=== PATIENT | female | born 1995 | race Caucasian/White ===

== ENCOUNTER 2019-12-06 11:34 | Emergency (ER) | payer OTHER ==
--- NOTE | 2019-12-06 12:03 | ED Physician Documentation ---
History of Present Illness - Stated complaint Stated Complaint: BLEEDING - Chief complaint Chief Complaint: General - History of Present Illness Timing: Prior to arrival - Additonal information Additional information: 24-year-old female presents to the emergency department for evaluation of vaginal spotting and first trimester . Last menstrual period 10/22/2019. This young lady reports that this a.m. she began having very light vaginal spotting and mild pelvic cramping but no focal pain. This is her first . She denies fevers vomiting diarrhea dysuria urgency or frequency. No pertinent past medical history or abdominal surgeries. She is not taking any prescribed medications. Denies alcohol or tobacco use Review of Systems Constitutional: reports: Reviewed and negative Eyes: reports: Reviewed and negative Nose: reports: Reviewed and negative Throat: reports: Reviewed and negative Cardiac: reports: Reviewed and negative Respiratory: reports: Reviewed and negative GI: reports: Abdominal Pain (lowr pelvic cramping). denies: Nausea, Vomiting, Diarrhea : reports: LMP (10/22/2019), Vaginal bleeding, Now EGA. denies: Dysuria, Frequency, Hesitancy Skin: reports: Reviewed and negative Musculoskeletal: reports: Reviewed and negative Neurologic: reports: Reviewed and negative PD PAST MEDICAL HISTORY - Present Medications Home Medications: Ambulatory Orders Medication Instructions Recorded Confirmed No Known Home Medications 12/06/19 12/06/19 - Allergies Allergies/Adverse Reactions: Allergies Allergy/AdvReac Type Severity Reaction Status Date / Time No Known Drug Allergies Allergy Verified 12/06/19 11:38 PD ED PE NORMAL - General General: Alert and oriented X 3, No acute distress, Well developed/nourished - HEENT HEENT: Atraumatic, EOMI - Neck Neck: Supple, no meningeal sign, No adenopathy - Cardiac Cardiac: RRR, No murmur, No gallop - Respiratory Respiratory: No respiratory distress, Clear bilaterally - Abdomen Abdomen: Normal bowel sounds, Soft, Non tender, Non distended - Female Female : Deferred - Back Back: No CVA TTP - Derm Derm: Normal color, Warm and dry, No rash - Extremities Extremities: No deformity, No tenderness to palpate, Normal ROM s pain - Neuro Neuro: Alert and oriented X 3, 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 Eye Opening: Spontaneous Motor: Obeys Commands Verbal: Oriented GCS Score: 15 - Psych Psych: Normal mood Results - Vitals Vitals: Vital Signs - 24 hr 12/06/19 11:35 Temperature 37.4 C Heart Rate 111 H Respiratory 20 Rate Blood Pressure 121/79 O2 Saturation 100 Oxygen O2 Source Room air - Labs Labs: Laboratory Tests 12/06/19 12/06/19 12/06/19 12:00 12:15 12:15 WBC 8.4 RBC 4.73 Hgb 13.5 Hct 42.1 MCV 89.0 MCH 28.5 MCHC 32.1 RDW 12.4 Plt Count 221 MPV 11.8 H Neut # (Auto) 5.2 Lymph # (Auto) 2.2 [place] # (Auto) 0.8 Eos # (Auto) 0.1 Baso # (Auto) 0.0 Absolute Nucleated RBC 0.00 Nucleated RBC % 0.0 Sodium Potassium Chloride Carbon Dioxide Anion Gap BUN Creatinine Estimated GFR (MDRD) Glucose Calcium Total Bilirubin AST ALT Alkaline Phosphatase Total Protein Albumin Globulin Albumin/Globulin Ratio Lipase HCG, Quant Urine Color YELLOW Urine Clarity CLEAR Urine pH 6.0 Ur Specific [place] 1.010 Urine Protein NEGATIVE Urine Glucose (UA) NEGATIVE Urine Ketones NEGATIVE Urine Occult Blood MODERATE H Urine Nitrite NEGATIVE Urine Bilirubin NEGATIVE Urine Urobilinogen 0.2 (NORMAL) Ur Leukocyte Esterase TRACE H Urine RBC 0-5 Urine WBC 0-3 Ur Squamous Epith Cells FEW Squamous Urine Bacteria Few Ur Microscopic Review INDICATED Urine Culture Comments INDICATED Blood Type O POSITIVE 12/06/19 12/06/19 12:15 12:15 WBC RBC Hgb Hct MCV MCH MCHC RDW Plt Count MPV Neut # (Auto) Lymph # (Auto) [place] # (Auto) Eos # (Auto) Baso # (Auto) Absolute Nucleated RBC Nucleated RBC % Sodium 137 Potassium 3.3 L Chloride 103 Carbon Dioxide 24 Anion Gap 10.0 BUN 10 Creatinine 0.6 Estimated GFR (MDRD) 125 Glucose 86 Calcium 9.3 Total Bilirubin 1.2 H AST 17 ALT 16 Alkaline Phosphatase 36 L Total Protein 7.1 Albumin 4.4 Globulin 2.7 Albumin/Globulin Ratio 1.6 Lipase 30 HCG, Quant 04429.00 Urine Color Urine Clarity Urine pH Ur Specific [place] Urine Protein Urine Glucose (UA) Urine Ketones Urine Occult Blood Urine Nitrite Urine Bilirubin Urine Urobilinogen Ur Leukocyte Esterase Urine RBC Urine WBC Ur Squamous Epith Cells Urine Bacteria Ur Microscopic Review Urine Culture Comments Blood Type - Rads (name of study) Pelvic US Radiology: Final report received (Likely early intrauterine with early gestational sac and yolk sac but no pole at this time. Recommend follow- up obstetric ultrasound in 1 week) PD MEDICAL DECISION MAKING - ED course Complexity details: reviewed results, re-evaluated patient, considered differential, d/w patient, d/w family ED course: 24 year old female presents to the ED for evaluation of first trimester vaginal spotting/bleeding - Pt is O positive - UA showed a few bacteria and is LE+; rare squamous cells. Will start macrobid - Ultrasound Showed an early IUP with gestational sac and yolk sac but no pole yet seen. Patient has a very healthy hCG level at > 17,000. [place] here on Tuesday to have her hCG level redrawn. Emergent return precautions discussed for severe vaginal bleeding. Departure - Departure Disposition: 01 Home, Self Care Clinical Impression: Threatened in first trimester Condition: Stable Record reviewed to determine appropriate education?: Yes Instructions: ED Miscarriage Poss Comments: Radha the ultrasound today shows that you have a gestational and a yolk sac in your uterus but it is too soon for us to see heart rate and activity. Your hormone level today was more than 17,000. Please return here on Tuesday to have your hormone level rechecked. A hormone level that doubles approximately every 48 hours is a good sign that the is going to continue normally. A dropping hormone level is a sign of inevitable miscarriage. If you develop suddenly severe lower abdominal pain, feel faint or lightheaded, or have severe vaginal bleeding as we discussed then please return sooner to the emergency department
[2019-12-06 12:31] LABS: BASOPHILS % (AUTO) 0.2 %; EOSINOPHILS # (AUTO) 0.1 10^3/uL (0.0-0.7); EOSINOPHILS % (AUTO) 0.6 %; HGB - HEMOGLOBIN 13.5 g/dL (12.0-16.0); LYMPHOCYTES # (AUTO) 2.2 10^3/uL (1.5-3.5); LYMPHOCYTES % (AUTO) 26.7 %; MEAN CORPUSCULAR HEMOGLOBIN 28.5 pg (27.0-31.0); MEAN CORPUSCULAR HGB CONC 32.1 g/dL (32.0-36.0); MEAN PLATELET VOLUME 11.8 fL (7.9-10.8); MONOCYTES # (AUTO) 0.8 10^3/uL (0.0-1.0); MONOCYTES % (AUTO) 9.7 %; NEUTROPHILS # (AUTO) 5.2 10^3/uL (1.5-6.6); PLT - PLATELET COUNT 221 10^3/uL (130-450); RED BLOOD COUNT 4.73 10^6/uL (4.20-5.40); RED CELL DISTRIBUTION WIDTH 12.4 % (12.0-15.0); WHITE BLOOD COUNT 8.4 x10^3/uL (4.8-10.8)
[2019-12-06 12:33] LABS: BILIRUBIN,URINE NEGATIVE (NEGATIVE); GLUCOSE, URINE (UA) NEGATIVE (NEGATIVE); KETONES,URINE (UA) NEGATIVE (NEGATIVE); LEUKOCYTE ESTERASE, URINE TRACE (NEGATIVE); NITRITE,URINE NEGATIVE (NEGATIVE); OCCULT BLOOD,URINE MODERATE (NEGATIVE); PROTEIN,URINE NEGATIVE (NEGATIVE); UROBILINOGEN,URINE 0.2 (NORMAL) E.U./dL (NORMAL)
[2019-12-06 12:42] LABS: ALBUMIN 4.4 g/dL (3.2-5.5); ALBUMIN/GLOBULIN RATIO 1.6 (1.0-2.2); BILIRUBIN,TOTAL 1.2 mg/dL (0.2-1.0); CALCIUM 9.3 mg/dL (8.5-10.3); CREATININE 0.6 mg/dL (0.4-1.0); TOTAL PROTEIN 7.1 g/dL (6.7-8.2)
[2019-12-06 12:49] LABS: CLARITY,URINE CLEAR (CLEAR)
[2019-12-06 12:55] LABS: BACTERIA,URINE Few /HPF (None Seen); RBC,URINE 0-5 /HPF (0-5); SQUAMOUS EPITHELIAL CELL,UR FEW Squamous (<= Few)
--- NOTE | 2019-12-06 14:32 | Ultrasound Report ---
PROCEDURE: OB First Trimester w/TV INDICATIONS: vaginal spotting and bleeding OUTSIDE/PRIOR DATING DATA: Last menstrual period (LMP): 10/22/2019. LMP-based estimated date of delivery (JONH): 07/28/2020. First dating scan (date and location): Not applicable. Estimated date of delivery (JONH) from first dating scan: Not applicable. TECHNIQUE: Real-time scanning was performed of the fetus and maternal pelvic organs, with image documentation. Endovaginal scanning was also performed to better visualize the fetus and maternal ovaries. COMPARISON: None FINDINGS: Embryo: Probable intrauterine gestational sac identified. Yolk sac is identified within the probable gestational sac. No pole or heart motion identified in the current study. Mean gestation al sac diameter is 1.05 cm. Small 0.9 x 0.3 x 0.8 periimplantation bleed is noted. Measurement variability in dating: +/- 4 weeks by LMP, +/- 7 days by mean sac diameter (use before 6 weeks gestation if crown-rump length not able to be measured), +/- 5 days by crown-rump length (6-12 weeks gestation). Maternal organs: Ovaries normal limits. Limited images through the kidneys demonstrate no hydroneph rosis. IMPRESSION: Likely early intrauterine with likely gestational sac and yolk sac but no pole at thi s time. Recommend follow-up obstetric ultrasound in one week. Reviewed by: Emi Cleaning MD, PhD on 12/06/2019 2:31 PM PDT Approved by: Emi Cleaning MD, PhD on 12/06/2019 2:31 PM PDT Station ID: [id number]
[2019-12-06 15:11] VITALS: BP 108/74
== END 2019-12-06 15:10 | disposition home or self-care (01) ==
LOC: ED 11:34
DX: O20.0 Threatened abortion (principal); Z3A.01 Less than 8 weeks gestation of pregnancy
CPT/HCPCS: 36415; 76801; 76817; 80053; 81001; 81003; 83690; 84702; 85025; 86900; 86901; 87086; 99284

== ENCOUNTER 2019-12-08 12:12 | Emergency (ER) | payer OTHER ==
[2019-12-08 13:10] LABS: BASOPHILS % (AUTO) 0.2 %; EOSINOPHILS % (AUTO) 0.5 %; HGB - HEMOGLOBIN 13.8 g/dL (12.0-16.0); LYMPHOCYTES % (AUTO) 24.8 %; MEAN CORPUSCULAR HEMOGLOBIN 28.8 pg (27.0-31.0); MEAN CORPUSCULAR HGB CONC 32.5 g/dL (32.0-36.0); MEAN CORPUSCULAR VOLUME 88.5 fL (81.0-99.0); MONOCYTES # (AUTO) 0.8 10^3/uL (0.0-1.0); MONOCYTES % (AUTO) 9.5 %; NEUTROPHILS # (AUTO) 5.3 10^3/uL (1.5-6.6); NEUTROPHILS % (AUTO) 64.4 %; PLT - PLATELET COUNT 214 10^3/uL (130-450); RED BLOOD COUNT 4.79 10^6/uL (4.20-5.40); RED CELL DISTRIBUTION WIDTH 12.5 % (12.0-15.0); WHITE BLOOD COUNT 8.2 x10^3/uL (4.8-10.8)
--- NOTE | 2019-12-08 14:02 | ED Physician Documentation ---
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 At that time her quantitative hCG was 17,630 and she had an ultrasound done which demonstrated gestational sac but without evident pole. She was asked to return to the emergency department for repeat hCG in 2 days time and she states that, since she has been to the emergency department, bleeding and cramping has stopped. She feels otherwise well and is not currently ill. Review of Systems Constitutional: denies: Fever Eyes: denies: Decreased vision Ears: denies: Ear pain Nose: denies: Congestion Throat: denies: Sore throat Respiratory: denies: Dyspnea, Cough GI: denies: Abdominal Pain, Nausea, Vomiting : denies: Dysuria PD PAST MEDICAL HISTORY - Past Surgical History HEENT: Tonsil/Adenoidectomy - Present Medications Home Medications: Ambulatory Orders Medication Instructions Recorded Confirmed No Known Home Medications 12/06/19 12/06/19 - Allergies Allergies/Adverse Reactions: Allergies Allergy/AdvReac Type Severity Reaction Status Date / Time No Known Drug Allergies Allergy Verified 12/08/19 12:35 - Social History Does the pt smoke?: No Smoking Status: Never smoker Does the pt have substance abuse?: No - Immunizations Immunizations are current?: Yes PD ED PE NORMAL - Vitals Vital signs reviewed: Yes (normal ) - General General: Alert and oriented X 3, No acute distress, Well developed/nourished - HEENT HEENT: Atraumatic, PERRL - Neck Neck: Supple, no meningeal sign - Cardiac Cardiac: RRR, No murmur - Respiratory Respiratory: No respiratory distress, Clear bilaterally - Abdomen Abdomen: Soft, Non tender - Back Back: No CVA TTP, No spinal TTP - Derm Derm: Normal color, Warm and dry, No rash - Extremities Extremities: No deformity, No edema - Neuro Neuro: Alert and oriented X 3, 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, No motor deficit, No sensory deficit, Normal speech Eye Opening: Spontaneous Motor: Obeys Commands Verbal: Oriented GCS Score: 15 - Psych Psych: Normal mood, Normal affect Results - Vitals Vitals: Vital Signs - 24 hr 12/08/19 12/08/19 12:29 12:41 Temperature 36.4 C L Heart Rate 77 79 Respiratory 16 16 Rate Blood Pressure 106/60 110/73 O2 Saturation 99 98 Oxygen O2 Source Room air - Labs Labs: Laboratory Tests 12/08/19 12/08/19 13:02 13:02 WBC 8.2 RBC 4.79 Hgb 13.8 Hct 42.4 MCV 88.5 MCH 28.8 MCHC 32.5 RDW 12.5 Plt Count 214 MPV 12.0 H Neut # (Auto) 5.3 Lymph # (Auto) 2.0 Lane # (Auto) 0.8 Eos # (Auto) 0.0 Baso # (Auto) 0.0 Absolute Nucleated RBC 0.00 Nucleated RBC % 0.0 HCG, Quant 06629.00 Procedures - Bedside sono Bedside sono by EMP: With use of bedside ultrasound the pelvis is imaged there is a gestational sac that measures 6 weeks 3 days. I am not able to visualize a pole. PD MEDICAL DECISION MAKING - ED course Complexity details: reviewed old records, reviewed results, re-evaluated patient, considered differential, d/w patient, d/w family ED course: 24-year-old female with bleeding and cramping that has now resolved has had ultrasound without evidence of a pole does appear to be an intrauterine gestational sac and the quantitative hCG has risen appropriately for the stage of .A bedside ultrasound is attempted and I am not able to see a pole. I am able to see a gestational sac and measure it and this measures about 6 weeks 3 days.I have discussed with the patient the reassurance of the rising quantitative hCG and the fact that we still are not able to see a pole. I suspect. is progressing and I have indicated the patient the alternative which would be a blighted ovum. I have asked her to follow up with her OB this coming week for a formal ultrasound. Departure - Departure Disposition: 01 Home, Self Care Clinical Impression: First trimester Condition: Stable Instructions: Bleeding Early Preg Follow-Up: OREN Hurt [Provider Group] Comments: Today your quantitative hCG is 29,087.00 and this number is appropriate amount of increase in the past 2 days for a normal . You will need another formal ultrasound in about one week to confirm the presents of the fetus.
[2019-12-08 14:20] VITALS: BP 106/72
== END 2019-12-08 14:24 | disposition home or self-care (01) ==
LOC: ED 12:12
DX: O20.9 Hemorrhage in early pregnancy, unspecified (principal); Z3A.01 Less than 8 weeks gestation of pregnancy
CPT/HCPCS: 36415; 84702; 85025; 99282; 99283

== ENCOUNTER 2020-05-10 10:50 | Outpatient (CLI) | payer OTHER ==
[2020-05-10 11:00] VITALS: BP 111/64
[2020-05-10 11:56] LABS: RUPTURE OF MEMBRANES PLUS NEGATIVE (NEGATIVE)
--- NOTE | 2020-05-10 13:00 | PROVIDER PROGRESS NOTE ---
- HPI Current : Current EDU 08/04/20 Gestation 27 Weeks and 5 Days 1 Para 0 Vital Signs Temperature 98.2 F 05/10/20 10:57 Heart Rate 117 H 05/10/20 10:57 Respiratory Rate 22 05/10/20 10:57 Blood Pressure 111/64 05/10/20 10:57 O2 Saturation 100 05/10/20 10:57 Temperature 98.2 F 05/10/20 10:57 Heart Rate 117 H 05/10/20 10:57 Respiratory Rate 22 05/10/20 10:57 Blood Pressure 111/64 05/10/20 10:57 O2 Saturation 100 05/10/20 10:57 - Procedures NST Procedure: NST Procedure Start Date 05/10/20 Start Time 11:00 Stop Time 12:05 Vibroacoustic Stimulation Used No Patient States Movement Yes - Plan Plan: Patient seen and evaluated by MD, 20min time. S: leaking of fluid for 2d, started yesterday, wet through underwear once. That happened again today. No color to the fluid. No VB, no UC. Good FM. No vaginal itching or odor. O: AVSS Alert, smiling, NAD Abd soft, nt/nd EFG normal Vag pink/normal/no lesions with physiologic discharge Negative pooling, valsalva, ferning, and nitrizine Baseline: BPM 150 Variability: Moderate Accelerations: Present Decelerations: Absent Trends in FHR over time: no changes [place] contractions in 10 minutes: 0 Impression: reactive Category 1 NST Labs: neg wet mount, neg ROM test A/P: 24yo P0 at 27w with leukorrhea of , no evidence of ROM. labor precautions given. Routine follow up at next scheduled visit.
[2020-05-10 22:16] LABS: CHLAMYDIA TRACHOMATIS DNA NEGATIVE (NEGATIVE); NEISSERIA GONORRHOEAE DNA NEGATIVE (NEGATIVE); TRICHOMONAS VAGINALIS DNA NEGATIVE (NEGATIVE)
== END 2020-05-10 13:00 | disposition home or self-care (01) ==
LOC: WFO 10:50 → FBP 10:51 → WFO 13:00
PROVIDERS: ATTEND Obstetrics & Gynecology
DX: O99.891 Other specified diseases and conditions complicating pregnancy (principal); N89.8 Other specified noninflammatory disorders of vagina; Z3A.27 27 weeks gestation of pregnancy
CPT/HCPCS: 59025; 84112; 87210; 87491; 87591; 87661; 99213

== ENCOUNTER 2020-06-01 08:31 | Outpatient (CLI) | payer OTHER ==
--- NOTE | 2020-06-01 12:45 | Ultrasound Report ---
PROCEDURE: OB F/U or Repeat INDICATIONS: SUPERVISION OF NORMAL OUTSIDE/PRIOR DATING DATA: Last menstrual period (LMP): Given as 10/29/2019. LMP-based estimated date of delivery (JONH): Given as 08/04/2020, physician stated. First dating scan (date and location): Not applicable Estimated date of delivery (JONH) from first dating scan: Not applicable. TECHNIQUE: Real-time scanning was performed of the fetus, with image documentation and biometric measurements. Endovaginal scanning: Not done COMPARISON: 12/06/2019 FINDINGS: General: A single live intrauterine gestation is present. Presentation: Cephalic Placenta: Placental position is anterior, without previa. Amniotic fluid index: 12.3 cm cm, 27th percentile for gestational age. heart rate: 144 beats per minute. Maternal cervical canal: 3.6 cm cm long; normal length is 2.5 cm or more. biometrics: Biparietal diameter: 8 cm equals 31 weeks 1 day Head circumference: 29.6 cm equals 32 weeks 5 days Abdominal circumference: 28.1 cm equals 32 weeks 1 day Femur length: 5.7 cm equals 29 weeks 1 day Estimated gestational age from initial scan: 30 weeks 6 days Composite gestational age from present scan: 31 weeks 5 days Estimated weight and percentile: 1778 g, 68th percentile Measurement variability in biometric dating: +/- 10 days from 12-20 weeks gestation, +/- 2 weeks from 20-30 weeks gestation, +/- 3 weeks at 30 weeks gestation or more. Other: Not applicable. IMPRESSION: Single live intrauterine . Normal interval growth compared to the prior ultrasound examination. Estimated weight is at the 60th percentile for gestational age. Reviewed by: Pipo Bashir MD on 06/01/2020 11:43 AM KATY Approved by: Pipo Bashir MD on 06/01/2020 11:43 AM KATY Station ID: [id number]
== END 2020-06-01 08:32 | disposition home or self-care (01) ==
LOC: DI 08:31
PROVIDERS: ATTEND Obstetrics & Gynecology
DX: Z34.93 Encounter for supervision of normal pregnancy, unspecified, third trimester (principal)

== ENCOUNTER 2020-07-02 16:10 | Outpatient (CLI) | payer OTHER ==
[2020-07-02 16:25] VITALS: BP 108/67
--- NOTE | 2020-07-04 16:10 | PROVIDER PROGRESS NOTE ---
- HPI Chief Complaint: Decreased movement Current : Current EDU 08/04/20 Gestation 35 Weeks and 2 Days 1 Para 0 Vital Signs Temperature 98.8 F 07/02/20 16:24 Heart Rate 115 H 07/02/20 16:24 Respiratory Rate 16 07/02/20 16:24 Blood Pressure 108/67 07/02/20 16:24 O2 Saturation 99 07/02/20 16:24 Temperature 98.8 F 07/02/20 16:24 Heart Rate 115 H 07/02/20 16:24 Respiratory Rate 16 07/02/20 16:24 Blood Pressure 108/67 07/02/20 16:24 O2 Saturation 99 07/02/20 16:24 - Exam Patient is a 24 yo at 35+2 wga here with decreased FM. Recently underwent 2nd COVID vaccine. She did ntohave signficant symptoms but movement has been less robust since the vaccination. Has done some kick counts and felt the count was insufficient. has been uncomplicated to date. No CTX. No LOF or VB Past Medical History: Reviewed: No siginificant past medical history noted Past Surgical History: Reviewed and updated today: Eye Surgery Tonsilectomy FH: Genetic kidney disease Father on dialysis Sister affected (Patient is negative for gene mutation per records) ROS: As per HPI, otherwsie remaining systems are negative Past Medical History: Reviewed: No siginificant past medical history noted Past Surgical History: Reviewed and updated today: Eye Surgery Tonsilectomy FH: Genetic kidney disease Father on dialysis Sister affected (Patient is negative for gene mutation per records) PE: VS: see above GEN: NAD CV: mild tachycardia, reg rate RESP: CTAB ABD: gravid, S&NT PSYCH: appropriate affect NEURO: A&O - Procedures OB Procedure Performed: NST Diagnosis/Indication for NST: Decreased movement NST Procedure: NST Procedure Start Date 07/02/20 Start Time 16:20 Stop Time 12:05 Vibroacoustic Stimulation Used No Patient States Movement No: hasn't felt baby for 2 hours EFM 140 mod wagner 15x15 accels no decels TOCO: quiet Service Date of procedure: 07/02/20 Findings: 24 yo at 35+2 wga here with decreased FM Cat I tracing Reviewed kick counts and warning signs with patient Has FU this week in clinic DX: IUP at 35+2 wga Decreased FM
== END 2020-07-02 17:20 | disposition home or self-care (01) ==
LOC: WFO 16:10 → FBP 16:13 → WFO 17:20
PROVIDERS: ATTEND Obstetrics & Gynecology
DX: O36.8130 Decreased fetal movements, third trimester, not applicable or unspecified (principal); Z3A.35 35 weeks gestation of pregnancy; Z84.2 Family history of other diseases of the genitourinary system
CPT/HCPCS: 59025; 99211

== ENCOUNTER 2020-07-08 08:00 | Outpatient (CLI) | payer OTHER | END 2020-07-08 23:59 | disposition home or self-care (01) | LOC: LAB.WC 08:00 | PROVIDERS: ATTEND Obstetrics & Gynecology | DX: Z36.85 Encounter for antenatal screening for Streptococcus B (principal) | CPT/HCPCS: 87797 ==

== ENCOUNTER 2020-07-15 09:53 | Outpatient (CLI) | payer OTHER ==
[2020-07-15 10:29] VITALS: BP 106/74
[2020-07-15 10:53] LABS: BILIRUBIN,URINE NEGATIVE (NEGATIVE); GLUCOSE, URINE (UA) NEGATIVE (NEGATIVE); KETONES,URINE (UA) NEGATIVE (NEGATIVE); LEUKOCYTE ESTERASE, URINE MODERATE (NEGATIVE); NITRITE,URINE NEGATIVE (NEGATIVE); OCCULT BLOOD,URINE NEGATIVE (NEGATIVE); PROTEIN,URINE NEGATIVE (NEGATIVE); UROBILINOGEN,URINE 0.2 (NORMAL) E.U./dL (NORMAL)
[2020-07-15 10:59] LABS: CREATININE,URINE 159.7 mg/dL; PROTEIN/CREATININE RATIO,URINE 0.1 (<=0.2)
[2020-07-15 11:04] LABS: CLARITY,URINE SL. CLOUDY (CLEAR)
[2020-07-15 11:05] LABS: BASOPHILS % (AUTO) 0.2 %; EOSINOPHILS % (AUTO) 0.5 %; HCT - HEMATOCRIT 34.8 % (37.0-47.0); HGB - HEMOGLOBIN 10.7 g/dL (12.0-16.0); LYMPHOCYTES # (AUTO) 1.6 10^3/uL (1.5-3.5); LYMPHOCYTES % (AUTO) 25.3 %; MEAN CORPUSCULAR HEMOGLOBIN 23.6 pg (27.0-31.0); MEAN CORPUSCULAR HGB CONC 30.7 g/dL (32.0-36.0); MEAN CORPUSCULAR VOLUME 76.8 fL (81.0-99.0); MEAN PLATELET VOLUME 12.7 fL (7.9-10.8); MONOCYTES # (AUTO) 0.7 10^3/uL (0.0-1.0); MONOCYTES % (AUTO) 10.6 %; NEUTROPHILS % (AUTO) 62.8 %; PLT - PLATELET COUNT 237 10^3/uL (130-450); RED BLOOD COUNT 4.53 10^6/uL (4.20-5.40); RED CELL DISTRIBUTION WIDTH 15.3 % (12.0-15.0); WHITE BLOOD COUNT 6.4 x10^3/uL (4.8-10.8)
[2020-07-15 11:14] LABS: BILIRUBIN,TOTAL 0.6 mg/dL (0.2-1.0); CALCIUM 8.6 mg/dL (8.5-10.3); CREATININE 0.5 mg/dL (0.4-1.0); POTASSIUM 3.8 mmol/L (3.5-5.0)
[2020-07-15 11:14] LABS: RBC,URINE 0-5 /HPF (0-5); SQUAMOUS EPITHELIAL CELL,UR MANY Squamous (<= Few)
[2020-07-15 11:15] LABS: BACTERIA,URINE Few /HPF (None Seen)
--- NOTE | 2020-07-15 11:42 | PROCEDURE REPORT ---
- HPI Diagnosis/Indication for NST: Other (back pain) Current EDU 08/04/20 Gestation 37 Weeks and 1 Days 1 Para 0 Vital Signs Temperature 97.9 F 07/15/20 10:12 Heart Rate 115 H 07/15/20 10:12 Respiratory Rate 07/15/20 10:12 Blood Pressure 106/74 07/15/20 10:12 O2 Saturation 100 07/15/20 10:12 Temperature 97.9 F 07/15/20 10:29 Heart Rate 115 H 07/15/20 10:29 Respiratory Rate 07/15/20 10:29 Blood Pressure 106/74 07/15/20 10:29 O2 Saturation 100 07/15/20 10:29 - NST Procedure NST Procedure Start Date 07/15/20 Start Time 10:10 Stop Time 10:37 Vibroacoustic Stimulation Used No Patient States Movement Yes - Results and Plan Findings/Impression: Baseline: BPM 135 Variability: Moderate Accelerations: Present Decelerations: Absent Trends in FHR over time: no changes [place] contractions in 10 minutes: 0 Impression: reactive Category 1 NST CC: back pain HPI: was getting baby's room ready yesterday. When woke up noticed significant pain in the left occipital, upper back and back of shoulder area. No cough or hemptysis. O: aVSS, alert and resting well. tender to palpation trapezius muscle. No abd tenderness. Trace LE edema bilat. Normal PIH labs A/P: Trapezius spasm. Comfort measures reviewed.
== END 2020-07-15 11:40 | disposition home or self-care (01) ==
LOC: WFO 09:53 → FBP 09:57 → WFO 11:40
PROVIDERS: ATTEND Obstetrics & Gynecology
DX: O99.891 Other specified diseases and conditions complicating pregnancy (principal); M62.830 Muscle spasm of back; Z3A.37 37 weeks gestation of pregnancy
CPT/HCPCS: 36415; 59025; 80053; 81001; 82570; 84156; 85025; 87086; 99213

== ENCOUNTER 2020-07-17 17:46 | Outpatient (CLI) | payer OTHER ==
[2020-07-17 18:05] VITALS: BP 110/72
[2020-07-17 18:26] LABS: RUPTURE OF MEMBRANES PLUS NEGATIVE (NEGATIVE)
--- NOTE | 2020-07-20 04:43 | PROCEDURE REPORT ---
- HPI Diagnosis/Indication for NST: Other (leukorrhea of ) Current EDU 08/04/20 Gestation 37 Weeks and 3 Days 1 Para 0 Vital Signs Temperature 99.0 F 07/17/20 18:03 Heart Rate 97 07/17/20 18:03 Respiratory Rate 16 07/17/20 18:03 Blood Pressure 110/72 07/17/20 18:03 O2 Saturation 98 07/17/20 18:03 Temperature 99.0 F 07/17/20 18:03 Heart Rate 97 07/17/20 18:03 Respiratory Rate 16 07/17/20 18:03 Blood Pressure 110/72 07/17/20 18:03 O2 Saturation 98 07/17/20 18:03 - NST Procedure NST Procedure Start Date 07/17/20 Start Time 17:52 Stop Time 10:37 Patient States Movement Yes - Results and Plan Findings/Impression: Baseline: BPM 150 Variability: Moderate Accelerations: Present Decelerations: Absent Trends in FHR over time: no changes [place] contractions in 10 minutes: 0 Impression: reactive Category 1 NST Neg ROM test, no abnormal LOF here.
== END 2020-07-17 18:51 | disposition home or self-care (01) ==
LOC: WFO 17:46 → FBP 17:49 → WFO 18:51
PROVIDERS: ATTEND Obstetrics & Gynecology
DX: O99.891 Other specified diseases and conditions complicating pregnancy (principal); N89.8 Other specified noninflammatory disorders of vagina; Z3A.37 37 weeks gestation of pregnancy
CPT/HCPCS: 84112; 99214

== ENCOUNTER 2020-07-24 16:09 | Outpatient (CLI) | payer OTHER ==
[2020-07-24 17:07] VITALS: BP 100/64
[2020-07-24 17:10] LABS: RUPTURE OF MEMBRANES PLUS NEGATIVE (NEGATIVE)
--- NOTE | 2020-08-03 17:47 | PROVIDER PROGRESS NOTE ---
- HPI Chief Complaint: Leakage of vaginal fluid Current : Current EDU 08/04/20 Gestation 38 Weeks and 3 Days 1 Para 0 Vital Signs Temperature 97.4 F L 07/24/20 16:55 Heart Rate 92 07/24/20 16:55 Respiratory Rate 18 07/24/20 16:55 Blood Pressure 100/64 07/24/20 16:55 O2 Saturation 99 07/24/20 16:55 Temperature 97.4 F L 07/24/20 16:55 Heart Rate 92 07/24/20 16:55 Respiratory Rate 18 07/24/20 16:55 Blood Pressure 100/64 07/24/20 16:55 O2 Saturation 99 07/24/20 16:55 - Exam ROM+ neg - Procedures OB Procedure Performed: NST Diagnosis/Indication for NST: Other (Labor assessment) NST Procedure: NST Procedure Start Date 07/24/20 Start Time 16:23 Stop Time 17:10 Vibroacoustic Stimulation Used No Patient States Movement Yes: leaking fluid EFM 135 mod wagner 15x15 accels no decels TOCO: intermittent/irreg Service Date of procedure: 07/24/20 Procedure Details: 24 yo at 38+3 here for rule out ruptured membranes MEMBRANE ASSESSMENT: Neg nitrazine Neg ROM+ FWB: Cat I tracing DISPO: Warning signs reviewed Discharged to home DX: IUP at 38+3 False labor
== END 2020-07-24 17:27 | disposition home or self-care (01) ==
LOC: WFO 16:09 → FBP 16:13 → WFO 17:27
PROVIDERS: ATTEND Obstetrics & Gynecology
DX: O47.1 False labor at or after 37 completed weeks of gestation (principal); Z3A.38 38 weeks gestation of pregnancy
CPT/HCPCS: 59025; 84112; 99212; 99213

== ENCOUNTER 2020-07-25 04:46 | Observation (INO) | payer OTHER ==
--- NOTE | 2020-07-25 11:26 | HISTORY & PHYSICAL EXAMINATION ---
Admit History - Visit Reason Visit Reason: Other (s/p fall/ decreased movement) - Smoking Status: Never smoker - Mother's Labs Mother's Blood Type: positive: O Mother's RH: positive: Positive GBS: positive: Group B Step Negative Rubella Status: positive: Immune - Other Maternal History Other Maternal History: Patient is a 24 yo at 38+4 wga here s/p fall Patient has been seen several times over the few days for labor assessment and rule out rupture with negative ROM+. She as having painful contractions overngith and took a shower to herrlp her relax. As she was stepping out of the shower, she slipped and fell. She managed to twist toavoid hitting her abdomen, but did her her flank andbuttocks, landing on the tub wall. it was loud enough that it woke her partner from sleep. No LOF or VB. Initially had decreased FM, now has an active fetus. Rh positive. JONH 07/31/20 by 10 week us at [facility] O pos/Rub inn VZV non-immune HSV: denies GBS negative Past Medical History: Reviewed: No siginificant past medical history noted Past Surgical History: Reviewed and updated today: Eye Surgery Tonsilectomy FH: Genetic kidney disease Father on dialysis Sister affected (Patient is negative for gene mutation per records) ROS: As per HPI, otherwsie remaining systems are negative Meds/Allgy - Home Medications Home Medications: Ambulatory Orders Medication Instructions Recorded Confirmed No Known Home Medications 12/06/19 12/06/19 - Allergies Allergies/Adverse Reactions: Allergies Allergy/AdvReac Type Severity Reaction Status Date / Time No Known Drug Allergies Allergy Verified 12/08/19 12:35 Review of Systems - Other Findings Other Findings: As per HPI, otherwise remaining systems are negative Physical - Abdominal Exam Vital Signs: Temp Pulse Resp BP Pulse Ox 98.4 F 121 H 20 108/70 99 07/25/20 05:05 07/25/20 05:05 07/25/20 05:05 07/25/20 05:05 07/25/20 05:05 Contraction Frequency (min/apart): Intermittent Q3-6 Contraction Intensity: positive: Mild to moderate Uterine Resting Tone: positive: Soft - Monitoring Heart Rate Baseline: 145 mod wagner 15x15 accels no decels Strip Review: positive: Category I - Presentation Presentation: positive: Vertex - Vaginal Exam Membranes: positive: Membranes intact Dilation (in cm): 2 Effacement (%): 60 Station: positive: -2 Cervical Position: positive: Posterior - Other Notes Labor Progress Note/Additional Text: GEN: NAD HEENT: NCAT CV: RR RESP: nl effort ABD: gravid, S&ND. Mild TTP unrelated to fall in periumbilical region EXT: WWP PSYCH: appropriate affect NEURO: A&O Plan for Labor - Plan For Labor Plan for Labor: S/P at 38+4 wga Fall at 4 am Cad more than 10 contractios in initial 4 horus Per protocol, must be observed for 24 hours on EFM Patient and partner are in agreement with plan Cat I tracing GBS neg Rh positive- Rhogam not indicated OK for morphine sleep as desired Reg diet DC home at 24 hours of normal EFM and no change in SVE
[2020-07-25] MEDS ORDERED: PROMETHAZINE 25 MG/1 ML VIAL IM PRN (13:00)
[2020-07-25] MEDS ORDERED: MORPHINE 10 MG/ML VIAL IM PRN (13:00)
[2020-07-25 17:51] VITALS: BP 93/55
--- NOTE | 2020-07-26 08:47 | PROVIDER PROGRESS NOTE ---
- HPI Chief Complaint: Fall Current : Current EDU 08/04/20 Gestation 38 Weeks and 5 Days 1 Para 0 Vital Signs Temperature 36.9 C 07/25/20 05:00 Heart Rate 121 H 07/25/20 05:00 Respiratory Rate 20 07/25/20 05:00 Blood Pressure 108/70 07/25/20 05:00 O2 Saturation 99 07/25/20 05:00 Temperature 37.1 C 07/25/20 16:08 Heart Rate 99 07/25/20 16:08 Respiratory Rate 17 07/25/20 16:08 Blood Pressure 93/55 L 07/25/20 16:08 O2 Saturation 100 07/25/20 16:08 - Procedures OB Procedure Performed: NST Diagnosis/Indication for NST: Other (FALL) NST Procedure: NST Procedure Start Date 07/26/20 Start Time 06:32 Stop Time 06:52 Vibroacoustic Stimulation Used No Patient States Movement Yes Findings: MINIMAL CONTRACTIONS REACTIVE STRIP THROUGH OUT. 24 HOUR MONITORING - Plan Plan: sCHEDULE FOR CERVICAL RIPENING TUESDAY WITH INDUCTION TUESDAY.
--- NOTE | 2020-09-02 16:16 | PROCEDURE REPORT ---
- HPI Current EDU 08/04/20 Gestation 38 Weeks and 5 Days 1 Para 0 Vital Signs Temperature 98.4 F 07/25/20 05:00 Heart Rate 121 H 07/25/20 05:00 Respiratory Rate 20 07/25/20 05:00 Blood Pressure 108/70 07/25/20 05:00 O2 Saturation 99 07/25/20 05:00 Temperature 98.8 F 07/25/20 16:08 Heart Rate 99 07/25/20 16:08 Respiratory Rate 17 07/25/20 16:08 Blood Pressure 93/55 L 07/25/20 16:08 O2 Saturation 100 07/25/20 16:08 - NST Procedure NST Procedure Start Date 07/26/20 Start Time 06:32 Stop Time 06:52 Vibroacoustic Stimulation Used No Patient States Movement Yes Heart Rate Baseline: 145 mod wagner 15x15 accels no decels TOCO: intermittent Strip Review: positive: Category I - Results and Plan Findings/Impression: Patient is a 24 yo at 38+5 wga here with false labor Please see OB outpatient note regarding plan of care Therapeutic rest Cat I tracing No change in SVE over period of observation DC to home with routine follow-up NST read 07/25/20 DOS 07/25/20
== END 2020-07-26 07:00 | disposition home or self-care (01) ==
LOC: WFO 04:46 → FBP 04:50 → WFO 05:18 → FBP 05:19
PROVIDERS: ADMIT Obstetrics & Gynecology; ATTEND Obstetrics & Gynecology
DX: O47.1 False labor at or after 37 completed weeks of gestation (principal); Z3A.38 38 weeks gestation of pregnancy; O36.8130 Decreased fetal movements, third trimester, not applicable or unspecified; Z91.81 History of falling
CPT/HCPCS: 59025; 99213; G0378

== ENCOUNTER 2020-07-28 11:20 | Outpatient (CLI) | payer OTHER ==
[2020-07-28 16:09] VITALS: BP 113/81
--- NOTE | 2020-08-03 18:13 | PROVIDER PROGRESS NOTE ---
- HPI Chief Complaint: Labor Check Current : Current EDU 08/04/20 Gestation 39 Weeks and 0 Days 1 Para 0 Vital Signs Temperature 97.5 F L 07/28/20 11:37 Heart Rate 123 H 07/28/20 11:37 Respiratory Rate 17 07/28/20 11:37 Blood Pressure 113/73 07/28/20 11:37 O2 Saturation 99 07/28/20 11:37 Temperature 98.6 F 07/28/20 11:38 Heart Rate 90 07/28/20 12:00 Respiratory Rate 20 07/28/20 11:38 Blood Pressure 113/81 H 07/28/20 11:38 O2 Saturation 100 07/28/20 11:38 - Exam SVE 2/80/-2/posterior per RN exam Unchanged on serail exams - Procedures OB Procedure Performed: NST NST Procedure: NST Procedure Start Time 06:32 Stop Time 06:52 EFM 140 mod wagner 15x15 accels no decels TOCO: intermittent Service Date of procedure: 07/28/20 - Plan Plan: 24 yo at 39+0 wga here for labor assessment No change in SVE Cat I tracing Warning signs reviewed Cont with routine PNC with primary OB DX: IUP at 39+0 False labor
== END 2020-07-28 15:00 | disposition home or self-care (01) ==
LOC: WFO 11:20 → FBP 11:27 → WFO 15:00
PROVIDERS: ATTEND Obstetrics & Gynecology
DX: O47.1 False labor at or after 37 completed weeks of gestation (principal); Z3A.39 39 weeks gestation of pregnancy
CPT/HCPCS: 99214

== ENCOUNTER 2020-07-29 19:48 | Outpatient (CLI) | payer OTHER ==
[2020-07-29 20:11] VITALS: BP 113/71
[2020-07-29 20:26] LABS: RUPTURE OF MEMBRANES PLUS NEGATIVE (NEGATIVE)
--- NOTE | 2020-08-07 08:22 | PROCEDURE REPORT ---
- HPI Diagnosis/Indication for NST: Other (possible ROM) Current EDU 08/04/20 Gestation 39 Weeks and 1 Days 1 Para 0 Vital Signs Temperature 37.1 C 07/29/20 20:06 Heart Rate 117 H 07/29/20 20:06 Respiratory Rate 16 07/29/20 20:06 Blood Pressure 113/71 07/29/20 20:06 O2 Saturation 100 07/29/20 20:06 Temperature 37.1 C 07/29/20 20:11 Heart Rate 117 H 07/29/20 20:11 Respiratory Rate 16 07/29/20 20:11 Blood Pressure 113/71 07/29/20 20:11 O2 Saturation 100 07/29/20 20:11 - NST Procedure NST Procedure Start Date 07/29/20 Start Time 19:55 Stop Time 20:45 Vibroacoustic Stimulation Used No Patient States Movement Yes - Results and Plan Findings/Impression: DOS 07/29/20 reactive NST ROM Negative Plan: follow in the clinic
== END 2020-07-29 20:50 | disposition home or self-care (01) ==
LOC: WFO 19:48 → FBP 19:50 → WFO 20:50
PROVIDERS: ATTEND Obstetrics & Gynecology
DX: Z34.03 Encounter for supervision of normal first pregnancy, third trimester (principal); Z3A.39 39 weeks gestation of pregnancy
CPT/HCPCS: 59025; 84112; 99211

== ENCOUNTER 2020-07-31 08:14 | Inpatient (IN) | payer OTHER ==
[2020-07-31] MEDS ORDERED: SODIUM CHLORIDE FLUSH 0.9% 10 ML SYRINGE IVP PRN ×2 (08:45→21:39)
[2020-07-31] MEDS ORDERED: OXYTOCIN/SODIUM CHLORIDE 500 ML IV PRN (09:22)
[2020-07-31] MEDS ORDERED: OXYTOCIN 10 UNIT/ML VIAL IM PRN (09:22)
[2020-07-31] MEDS ORDERED: TRANEXAMIC ACID IN NACL 1,000 MG/100 ML BAG IV PRN (09:22)
[2020-07-31] MEDS ORDERED: LIDOCAINE-MPF 1% 30 ML VIAL ID PRN (09:22)
[2020-07-31] MEDS ORDERED: miSOPROStoL 200 MCG TABLET BC PRN (09:22)
[2020-07-31] MEDS ORDERED: METHYLERGONOVINE 0.2 MG/ML VIAL IM PRN (09:22)
[2020-07-31] MEDS ORDERED: CARBOPROST TROMETHAMINE 250 MCG/ML AMP IM PRN (09:22)
[2020-07-31] MEDS ORDERED: LACTATED RINGERS 1,000 ML IV SCH ×2 (10:00→22:00)
[2020-07-31 14:12] LABS: BASOPHILS % (AUTO) 0.3 %; EOSINOPHILS % (AUTO) 0.3 %; HCT - HEMATOCRIT 34.6 % (37.0-47.0); HGB - HEMOGLOBIN 10.8 g/dL (12.0-16.0); LYMPHOCYTES # (AUTO) 1.3 10^3/uL (1.5-3.5); LYMPHOCYTES % (AUTO) 14.5 %; MEAN CORPUSCULAR HEMOGLOBIN 23.5 pg (27.0-31.0); MEAN CORPUSCULAR HGB CONC 31.2 g/dL (32.0-36.0); MEAN CORPUSCULAR VOLUME 75.2 fL (81.0-99.0); MEAN PLATELET VOLUME 12.7 fL (7.9-10.8); MONOCYTES # (AUTO) 1.1 10^3/uL (0.0-1.0); MONOCYTES % (AUTO) 12.4 %; NEUTROPHILS # (AUTO) 6.6 10^3/uL (1.5-6.6); NEUTROPHILS % (AUTO) 71.8 %; PLT - PLATELET COUNT 230 10^3/uL (130-450); WHITE BLOOD COUNT 9.1 x10^3/uL (4.8-10.8)
--- NOTE | 2020-07-31 16:20 | HISTORY & PHYSICAL EXAMINATION ---
Admit History - Visit Reason Visit Reason: Contractions - : 1 Parity: 0 Care: positive: [facility] Risk/History: positive: None (low lying Placenta early in prenancy r esolved) Complications This : positive: None Smoking Status: Never smoker Meds/Allgy - Home Medications Home Medications: Ambulatory Orders Medication Instructions Recorded Confirmed No Known Home Medications 12/06/19 12/06/19 - Allergies Allergies/Adverse Reactions: Allergies Allergy/AdvReac Type Severity Reaction Status Date / Time egg AdvReac Unknown Verified 07/31/20 09:12 Physical - Abdominal Exam Vital Signs: Temp Pulse Resp BP Pulse Ox 36.6 C 124 H 20 113/63 98 07/31/20 12:52 07/31/20 08:45 07/31/20 08:45 07/31/20 08:45 07/31/20 08:45 Contraction Intensity: positive: Moderate Uterine Resting Tone: positive: Soft - Monitoring Strip Review: positive: Category I - Presentation Presentation: positive: Vertex - Vaginal Exam Membranes: positive: Membranes intact Dilation (in cm): 3 Effacement (%): 80 Station: positive: -1 Cervical Position: positive: Posterior - Speculum Exam Speculum Exam Performed: positive: No Plan for Labor - Plan For Labor I expect patient to be DC'd or transferred within 96 hours.: Yes Plan for Labor: 39 weeks early labor. recheck 1200 4 cm/90/-1 allow to labor late entry 1200
--- NOTE | 2020-07-31 16:26 | PROVIDER PROGRESS NOTE ---
Labor Progress Note - Uterine Monitoring Uterine Monitoring Mode: positive: External toco Contraction Frequency (min/apart): 3 Contraction Intensity: positive: Moderate to strong Uterine Resting Tone: positive: Soft - Monitoring Monitor Mode: positive: External ultrasound Heart Rate Baseline: 145 Heart Rate Variability: positive: Moderate (6-25 bmp) Accelerations: positive: Present, 15x15 Decelerations: positive: None Strip Review: positive: Category I - Vaginal Exam Dilation (in cm): 4 Effacement (%): 90 Station: -1 Cervical Position: Midposition - Labor Progress Note Labor Progress Note/Additional Text: AROM moderate mech expect contractions to crescendo Epidural prn
[2020-07-31] MEDS ORDERED: ROPIVACAINE 0.2% 200 MG/100 ML BAG EP ONE (16:56)
[2020-07-31] MEDS ORDERED: SODIUM CHLORIDE FLUSH 0.9% 10 ML SYRINGE IVP SCH (17:00)
[2020-07-31] MEDS ORDERED: NALBUPHINE 10 MG/ML AMP IVP PRN ×2 (17:39→21:08)
[2020-07-31] MEDS ORDERED: NALOXONE 0.4 MG/ML VIAL IVP PRN ×2 (17:39→21:08)
[2020-07-31] MEDS ORDERED: METOCLOPRAMIDE 10 MG/2 ML VIAL IVP PRN ×2 (17:39→21:08)
[2020-07-31] MEDS ORDERED: ROPIVACAINE 0.2% 200 MG/100 ML BAG EP PRN (17:39)
[2020-07-31] MEDS ORDERED: ONDANSETRON 4 MG/2 ML VIAL IVP PRN ×2 (17:39→21:08)
[2020-07-31] MEDS ORDERED: ePHEDrine 50 MG/ML VIAL IVP PRN ×2 (17:39→21:08)
[2020-07-31] MEDS ORDERED: diphenhydrAMINE INJ 50 MG/ML VIAL IVP PRN ×2 (17:39→21:08)
--- NOTE | 2020-07-31 17:47 | ANESTHESIA ---
Pre-Anesthesia VS, & Labs - Diagnosis term labor, IUP - Procedure epidural for Vital Signs: Temp Pulse Resp BP Pulse Ox 36.6 C 124 H 20 113/63 98 07/31/20 12:52 07/31/20 08:45 07/31/20 08:45 07/31/20 08:45 07/31/20 08:45 Height: 5 ft 3 in Weight (kg): 70.398 kg Body Mass Index: 27.5 BMI Classification: Overweight - NPO Last Fluid Intake: t/o day Last Food Intake: t/o day - Is Patient ?: Yes - Lab Results Current Lab Results: Laboratory Tests 07/31/20 13:30: WBC 9.1, RBC 4.60, Hgb 10.8 L, Hct 34.6 L, MCV 75.2 L, MCH 23.5 L, MCHC 31.2 L, RDW 16.0 H, Plt Count 230, MPV 12.7 H, Neut # (Auto) 6.6, Lymph # (Auto) 1.3 L, [place] # (Auto) 1.1 H, Eos # (Auto) 0.0, Baso # (Auto) 0.0, Absolute Nucleated RBC 0.00, Nucleated RBC % 0.0 07/31/20 13:30: Blood Type O POSITIVE, Antibody Screen NEGATIVE Lab results reviewed: Yes Fish Bones: 07/31/20 13:30 Home Medications and Allergies Active Medications Carboprost Tromethamine (Carboprost Tromethamine 250 Mcg/Ml Amp) 250 mcg IM Q15 M PRN PRN Reason: Step 4: Hemorrhage protocol Stop: 08/05/20 09:22 Diphenhydramine HCl (Diphenhydramine Inj 50 Mg/Ml Vial) 12.5 - 25 mg IVP Q6HR PRN PRN Reason: ITCHING Ephedrine Sulfate (Ephedrine 50 Mg/Ml Vial) 5 mg IVP Q5M PRN PRN Reason: For SBP<100;give until SBP>100 Lactated Ringer's (Lr) 1,000 mls @ 150 mls/hr IV .Q6H40M OSCAR Oxytocin/Sodium Chloride (Pitocin/Sodium Chloride) 500 mls @ 999 mls/hr IV PRN PRN; Protocol PRN Reason: POST- HEMORR PREVENTION Stop: 08/05/20 09:22 Tranexamic Acid (Tranexamic 1,000 Mg/100ml-Nacl) 1,000 mg in 100 mls @ 600 mls/hr IV .ONCE PRN PRN Reason: EBL >1200mL and within 3hr Stop: 08/05/20 09:22 Ropivacaine (Naropin 0.2%) 200 mg in 100 mls @ 0 mls/hr EP PRN PRN; Protocol PRN Reason: PAIN Lidocaine HCl (Lidocaine-Mpf 1% 30 Ml Vial) 30 ml ID .ONCE PRN PRN Reason: PERINEAL REPAIR Stop: 08/05/20 09:22 Methylergonovine Maleate (Methylergonovine 0.2 Mg/Ml Vial) 0.2 mg IM .ONCE PRN PRN Reason: Step 2: Hemorrhage protocol Stop: 08/05/20 09:22 Metoclopramide HCl (Metoclopramide 10 Mg/2 Ml Vial) 10 mg IVP Q6HR PRN PRN Reason: Nausea / Vomiting Misoprostol (Misoprostol 200 Mcg Tablet) 800 mcg BC .ONCE PRN PRN Reason: Step 3: Hemorrhage protocol Stop: 08/05/20 09:22 Nalbuphine HCl (Nalbuphine 10 Mg/Ml Amp) 2.5 - 5 mg IVP Q4H PRN PRN Reason: ITCHING Naloxone HCl (Naloxone 0.4 Mg/Ml Vial) 0.1 mg IVP Q2M PRN PRN Reason: RR<8 Ondansetron HCl (Ondansetron 4 Mg/2 Ml Vial) 4 mg IVP Q6HR PRN PRN Reason: Nausea / Vomiting Oxytocin (Oxytocin 10 Unit/Ml Vial) 10 unit IM .ONCE PRN PRN Reason: Step one: If no IV access Stop: 08/05/20 09:22 Sodium Chloride (Sodium Chloride Flush 0.9% 10 Ml Syringe) 10 ml IVP PRN PRN PRN Reason: NEEDED PER PROVIDER ORDERS Sodium Chloride (Sodium Chloride Flush 0.9% 10 Ml Syringe) 10 ml IVP 0100,0900,1700 OSCAR No Known Home Medications 12/06/19 Allergies/Adverse Reactions: Allergies Allergy/AdvReac Type Severity Reaction Status Date / Time egg AdvReac Unknown Verified 07/31/20 09:12 Anes History & Medical History - Anesthetic History Anesthesia Complications: reports: No previous complications Family history of Anesthesia Complications: Denies Family history of Malignant Hyperthermia: Denies - Medical History Cardiovascular: reports: None Pulmonary: reports: None Urinary: reports: None Neuro: reports: None Musculoskeletal: reports: None Smoking Status: Never smoker - Surgical History Eyes Ears Nose Throat (EENT): reports: Tonsil/Adenoidectomy - Obstetrical History : 1 Parity: 0 Events: reports: None (low lying Placenta early in prenancy resolved) Complications: reports: None Exam General: Alert, Oriented x3, Cooperative Dental: WNL Mouth Openin Fingerbreadth Neck Mobility: Normal Mallampati classification: II Thyromental Distance: 4-6 cm Respiratory: No respiratory distress Cardiovascular: Regular rate Neurological: Normal speech Mental/Cognitive Status: Alert/Oriented X3, Normal for patient Cognitive Status: Within normal limits Plan Anesthesia Type: Epidural Consent for Procedure(s) Verified and Reviewed: Yes Code Status: Attempt Resuscitation ASA classification: 2-Mild systemic disease Is this case an emergency?: No
[2020-07-31] MEDS ORDERED: TERBUTALINE 1 MG/ML VIAL SUBQ ONE (20:11)
[2020-07-31] MEDS ORDERED: ceFAZolin 3 GM in SODIUM CHLORIDE 0.9% 100ML 100 ML IV SCH ×2 (20:19→21:00)
[2020-07-31] MEDS ORDERED: ceFAZolin 1 GM VIAL ONE ×2 (20:23→20:24)
[2020-07-31] MEDS ORDERED: ceFAZolin 2 GM/50 ML 2 GM/50 ML BAG IV ONE (20:23)
[2020-07-31] MEDS ORDERED: LIDOCAINE-MPF 2% 5 ML VIAL ONE (20:31)
[2020-07-31] MEDS ORDERED: METHYLERGONOVINE 0.2 MG/ML VIAL ONE (20:35)
[2020-07-31] MEDS ORDERED: CARBOPROST TROMETHAMINE 250 MCG/ML AMP IM ONE (20:35)
[2020-07-31] MEDS ORDERED: fentaNYL 100 MCG/2 ML VIAL ONE (20:41)
[2020-07-31] MEDS ORDERED: OXYTOCIN 10 UNIT/ML VIAL ONE ×2 (20:42→20:57)
[2020-07-31] MEDS ORDERED: ROPIVACAINE 0.5% PF 20 ML AMPULE ONE (20:50)
[2020-07-31] MEDS ORDERED: LIDOCAINE MPF 2%-EPI 1:200000 20 ML VIAL ONE (20:54)
[2020-07-31] MEDS ORDERED: BUPIVACAINE 0.5% PF 30 ML VIAL ONE (20:54)
[2020-07-31] MEDS ORDERED: BUPIVACAINE 0.5% PF 30 ML VIAL INFIL ONE ×2 (20:56)
[2020-07-31] MEDS ORDERED: LIDOCAINE MPF 2%-EPI 1:200000 20 ML VIAL SUBQ ONE ×2 (20:57)
[2020-07-31] MEDS ORDERED: MORPHINE PF 5 MG/10 ML VIAL ONE (21:05)
[2020-07-31] MEDS ORDERED: SODIUM CHLORIDE 0.9% 10 ML VIAL IVP ONE (21:07)
[2020-07-31] MEDS ORDERED: MORPHINE PF 5 MG/10 ML VIAL EP ONE (21:08)
[2020-07-31] MEDS ORDERED: LACTATED RINGERS 1,000 ML IV ONE ×2 (21:17)
[2020-07-31] MEDS ORDERED: SODIUM CHLORIDE 0.9% 1,000 ML IV ONE (21:31)
[2020-07-31] MEDS ORDERED: KETOROLAC 30 MG/ML VIAL ONE (21:42)
[2020-07-31 21:48] LABS: CORD ARTERIAL BLD BASE EXCESS -7.1; CORD ARTERIAL BLD OXYGEN SAT 15.4; CORD ARTERIAL BLOOD HCO3 20.5; CORD ARTERIAL BLOOD PCO2 51.6; CORD ARTERIAL BLOOD PH 7.218; CORD ARTERIAL BLOOD PO2 10.9; CORD ARTERIAL BLOOD TOTAL CO2 22.1
[2020-07-31 21:49] LABS: CORD VENOUS BLD PO2 20.7; CORD VENOUS BLOOD BASE EXCESS -5.5; CORD VENOUS BLOOD HCO3 20.4; CORD VENOUS BLOOD PCO2 41.6; CORD VENOUS BLOOD PH 7.309; CORD VENOUS BLOOD TOTAL CO2 21.7
--- NOTE | 2020-07-31 21:49 | ANESTHESIA POST OP EVALUATION ---
Anesthesia Post Eval - Post Anesthesia Eval Vitals: Last Vital Signs Temp 36.6 C 07/31/20 12:52 Pulse 116 H 07/31/20 21:39 Resp 22 07/31/20 21:39 BP 98/65 07/31/20 21:39 Pulse Ox 100 07/31/20 21:39 CV Function Including HR & BP: Stable Pain Control: Satisfactory Nausea & Vomiting: Negative Mental Status: Baseline Respiratory Status: Airway Patent Hydration Status: Satisfactory Anesthesia Complications: None (Pt resting comfortably in OB Rm3. Nausea has resolved, still unable to move LE, no complaints of pain. VSS)
[2020-07-31 21:50] LABS: CORD VENOUS BLOOD OXYGEN SAT 45.3
--- NOTE | 2020-07-31 22:31 | OPERATIVE REPORT ---
Operative Report - General Admit Date: 07/31/20 Planned Procedure: Stat primary low transverse section Pre-Op Diagnosis: With bradycardia intolerance of laborFetal tachycardia Procedure Performed: SAME Post Op Diagnosis: SANE - Procedure Note Primary Surgeon: Amor Chinchilla MD Secondary Surgeon: Audra Bryant CNMW Anesthesia Provider: Christiano Kendrick CRNA Anesthesia Technique: Epidural Pathology: placenta IV Fluids (mL): 1,400 Estimated Blood Loss (mL): 600 Urine Output (mL): 150 Findings: Vertex presentation 1, 2 and 7Live male . Thick meconium - Other Other Information/Narrative: Patient was taken to the operating in an expeditious fashion. At this point she was prepped and draped first the abdomen with a wipe as well In expeditious fashion. Vagina with Betadine. Then she was prepped and draped in usual fashion. Patient's epidural level was raised to an adequate level. A Pfannenst iel incision was carried down through the subcutaneous tissue to the fascia. The fascia was incised transversely then using both blunt and sharp dissection it was freed from the rectus abdominis and pyramidalis. The rectus was split along the midline peritoneum was entered high. Care was taken to avoid any injury to bowel or bladder. A bladder flap was developed using both blunt and sharp dissection. A low transverse uterine incision was accomplished utilizing #10 blade bandage scissors as well as finger spread technique a large amount of meconium was encountered at this time. The head of the was lifted of the pelvis and delivered with fundal pressure the oral and nasopharynx were bulb suctioned. The cord was doubly clamped and divided and the infant handed to the nursery team that was standing by. At this point a segment of cord was clamped and set aside for cord gases following this cord blood was obtained. The placenta was then manually delivered. The uterus was then exteriorized wrapped in a moist lap and cleansed in the internal portion with a dry lap. At this point there was evidence of a small T in the midline. This was closed utilizing 0 Vicryl in a running locking suture. The incision itself was then closed utilizing 0 Vicryl in a running locking suture. Both of these were umbricated with 0 Vicryl. Extra stitches were taken on the left-hand side. The wound was observed and no further bleeding was noted. The uterus was noted be mildly boggy and the patient received Methergine IM the uterus is tipped forward and the cul-de-sac was irrigated and then suctioned clear. The uterus was delivered back in the abdominal cavity the gutters were cleansed and then inspected for further bleeding. None was noted the incision was also inspected and no further bleeding was noted. The peritoneum was then closed utilizing 2-0 Vicryl in a running suture. The rectus were reapproximated with interrupted and [id number] sutures of 2-0 Vicryl. The rectus was inspected no further bleeding was noted it was irrigated. The fascia was closed utilizing looped PDS. The subcutaneous tissue was then closed utilizing 2-0 Vicryl. The wound itself was closed utilizing 4-0 Monocryl subcuticular. Steri-Strips were placed following application of Mastisol. The wound was then dressed in a sterile fashion. Patient tolerated procedure well and was taken recovery in stable condition sponge and needle counts were correct. Throughout this procedure Audra Kitchen was instrumental both to the functioning of the as well as aiding in retraction and expulsion of the .
[2020-07-31] MEDS: oxyCODONE 5 MG TABLET PO PRN (23:03)
[2020-08-01] MEDS ORDERED: SODIUM CHLORIDE FLUSH 0.9% 10 ML SYRINGE IVP SCH (01:00)
[2020-08-01] MEDS: KETOROLAC 30 MG/ML VIAL IVP PRN ×4 (04:51→22:54)
--- NOTE | 2020-08-01 08:02 | PROVIDER PROGRESS NOTE ---
Subjective - General Admit Date: 07/31/20 Procedure Date: 07/31/20 Post Op Days: 1 Procedure Performed: SPLTC/S - Review of Systems Wound/Incisions: positive: Dressing dry and intact General: positive: No symptoms (pain 2/10) HEENT: positive: No symptoms Gastrointestinal: positive: Flatus Objective - Patient Data Reviewed Vital Signs: Yes Vital Signs: Vital Signs x48h Temp Pulse Resp BP Pulse Ox 08/01/20 04:55 37.1 C 88 20 99/56 L 100 08/01/20 02:00 37.0 C 99 19 111/72 100 Weight: Weight 07/30/20 07/31/20 08/01/20 23:59 23:59 23:59 Weight (kg) 70.398 kg Intake & Output: Intake and Output Totals x24h 07/30/20 07/31/20 08/01/20 23:59 23:59 23:59 Intake Total 480 240 Output Total 600 450 Balance -120 -210 - Lab Results Lab Results: 07/31/20 13:30 Other Lab Results: Lab Results x24hrs 07/31/20 07/31/20 07/31/20 Range/Units 21:30 13:30 13:30 WBC 9.1 (4.8-10.8) x10^3/uL RBC 4.60 (4.20-5.40) 10^6/uL Hgb 10.8 L (12.0-16.0) g/dL Hct 34.6 L (37.0-47.0) % MCV 75.2 L (81.0-99.0) fL MCH 23.5 L (27.0-31.0) pg MCHC 31.2 L (32.0-36.0) g/dL RDW 16.0 H (12.0-15.0) % Plt Count 230 (130-450) 10^3/uL MPV 12.7 H (7.9-10.8) fL Neut # (Auto) 6.6 (1.5-6.6) 10^3/uL Lymph # (Auto) 1.3 L (1.5-3.5) 10^3/uL [place] # (Auto) 1.1 H (0.0-1.0) 10^3/uL Eos # (Auto) 0.0 (0.0-0.7) 10^3/uL Baso # (Auto) 0.0 (0.0-0.1) 10^3/uL Absolute Nucleated RBC 0.00 x10^3/uL Nucleated RBC % 0.0 /100WBC Cord ABG pH 7.218 Cord ABG pCO2 51.6 Cord ABG pO2 10.9 Cord ABG HCO3 20.5 Cord ABG Total CO2 22.1 Cord ABG Base Excess -7.1 Cord ABG O2 Sat 15.4 Cord VBG pH 7.309 Cord VBG pCO2 41.6 Cord VBG pO2 20.7 Cord VBG HCO3 20.4 Cord VBG Total CO2 21.7 Cord VBG Base Excess -5.5 Cord VBG O2 Sat 45.3 Blood Type O POSITIVE Antibody Screen NEGATIVE - Current Medications Current Medications: Current Medications Generic Name Dose Route Start Last Admin Trade Name Freq PRN Reason Stop Dose Admin Ketorolac Tromethamine 30 mg 07/31/20 22:26 08/01/20 04:51 Ketorolac 30 Mg/Ml Vial IVP 08/05/20 22:25 30 mg Q6HR PRN Administration PAIN Oxycodone HCl 5 mg 07/31/20 22:27 07/31/20 23:03 Oxycodone 5 Mg Tablet PO 5 mg Q4HR PRN Administration PAIN - Physical Exam Wound/Incisions: positive: Dressing dry and intact General Appearance: positive: No acute distress, Alert Respiratory: positive: Chest non-tender, No respiratory distress, Breath sounds nml Cardiovascular: positive: Regular rate & rhythm, No murmur, No gallop Abdomen: positive: Non-tender, Mass (U-1) Back: negative: CVA tenderness (R), CVA tenderness (L) Extremities: negative: Calf tenderness, Telly's sign/cords Impression/Plan - Problem List Problem List: POD #1 excellent progress
[2020-08-01] MEDS: oxyCODONE 5 MG TABLET PO PRN ×2 (17:04→22:08)
--- NOTE | 2020-08-01 22:31 | Discharge Plan ---
Discharge Plan Problem Reviewed?: Yes Disposition: Home, Self Care Condition: Good Prescriptions: Acetaminophen [Acetaminophen Extra Strength] 1,000 mg PO Q8H PRN #60 tablet PRN Reason: Pain Docusate Sodium 100Mg Capsule [Colace 100Mg Capsule] 100 - 200 mg PO BID PRN #60 cap PRN Reason: Constipation Ibuprofen [Motrin] 600 mg PO Q6H PRN #60 tab PRN Reason: Pain oxyCODONE [Roxicodone] 2.5 - 5 mg PO Q4H PRN #24 tablet PRN Reason: Severe Pain Diet: Regular Activity Restrictions: Additional Comments (see below) Shower Restrictions: No (No tub baths or hot tubs for 4 weeks) Additional Instructions or Follow Up instructions: Nothing in the vagina for 6 weeks: No intercourse, tampons, douching Call for: -Fever greater than 100.5 -Pain that does not improve with pain medication -Heavy bleeding in which you are soaking a pad an hour for 2 hours in a row -Incision becomes hot, hard, red, starts to open, or leaks foul smelling fluid No lifting more than 10# for 4 [address] while on narcotics Ok to shower. Let water run over the incision. Do not soap, scrub, or apply lotion. Pat dry with a clean towel or diane a chairman & ceo. The surgical stickers will start to peel off and you can remove them when they do. Otherwise, the provider will remove them at your one week follow-up appointment. OK to use an unscented sanitary napkin or clean washcloth to keep the incision dry if the belly folds over the incision. MEDICATIONS WERE SENT TO [facility] [id number] [place] [address] No Smoking: If you smoke, Please STOP! Call for help. Follow-up with: Amor Chinchilla MD [Provider Admit Priv/Credential] -
[2020-08-02] MEDS: oxyCODONE 5 MG TABLET PO PRN ×2 (03:28→07:40)
[2020-08-02] MEDS: IBUPROFEN 600 MG TABLET PO SCH ×2 (05:17→05:18)
[2020-08-02 07:36] VITALS: BP 90/55
--- NOTE | 2020-08-02 08:03 | PROVIDER PROGRESS NOTE ---
Subjective - Prog Note Date Prog Note Date: 08/02/20 Prog Note Time: 08:01 - Subjective Subjective: Patient is doing well. Up and ambulating. Tolerating po. Pain well managed. Desires discharge to get to [facility]. Objective - Vital Signs/Intake & Output Reviewed Vital Signs: Yes Vital Signs: Vital Signs x48h Temp Pulse Resp BP Pulse Ox 08/02/20 07:35 98.3 F 91 18 90/55 L 98 08/02/20 05:00 97.7 F 90 16 95/62 97 Intake & Output: Intake & Output 07/30/20 07/31/20 08/01/20 08/02/20 23:59 23:59 23:59 23:59 Intake Total 480 690 500 Output Total 600 1100 Balance -120 -410 500 - Objective General Appearance: positive: No acute distress Neck: positive: Nml inspection Respiratory: positive: No respiratory distress Cardiovascular: positive: Regular rate & rhythm Abdomen: positive: Non-tender, No distention, Other (Soft. Dressing removed. Incision line CDI) Skin: positive: Color nml Extremities: positive: Non-tender, No pedal edema Neurologic/Psychiatric: positive: Oriented x3 - Lab Results Fish Bones: 07/31/20 13:30 Assessment/Plan - Problem List (1) deliv NOS-unsp Impression: POD#2 Patient is doing well Routine discharge instructions given DC to home Rh pos/Rub imm
--- NOTE | 2020-08-02 08:15 | DISCHARGE SUMMARY ---
"Discharge Summary Admit Date: 07/31/20 Discharge Date: 08/02/20 Discharging Provider: Regulo Condition at Discharge: Good Discharge Disposition: 01 Home, Self Care - DIAGNOSES Admission Diagnoses: IUP at 39 wga Early labor Discharge Diagnoses with Status of Each Condition: Same and delivery of term gestation Emergency - HPI History of Present Illness: Patient is a 24 yo G1now P1 admitted at 39 weeks gestational age in early labor. Was 4 cm at time of admission. - CONSULTS | PROCEDURES Procedures: Emergent primary low transverse - HOSPITAL COURSE Hospital Course: Patient was admitted at 4 cm dilation. She underwent artificial rupture of membranes, notable for passage of thick meconium. Patient had an epidural placed. tracing showed a terminal bradycardia. And emergent was performed, delivering a male from vertex presentation with Apgars of 1/2/7. Cord gases were sent. ABG pH 7.21 pCO2 52 pO2 11 HCO3 21 BE -7 VBG pH 7.309 pCO2 41 pO2 21 HCO3 20 BE -5.5 O2 sat 45 was transported to [facility] for meconium aspiration several hours after delivery. Maternal post operative course was uncomplicated. By OD#2, she was meeting goals for discharge and was discharged with routine discharge instructions. Rh pos/Rub imm - ALLERGIES Allergies/Adverse Reactions: Allergies Allergy/AdvReac Type Severity Reaction Status Date / Time egg AdvReac Unknown Verified 08/21/20 22:14 - MEDICATIONS Home Medications: Ambulatory Orders Medication Instructions Recorded Confirmed cephALEXin [Keflex] 500 mg PO Q6H #28 08/21/20 - LABS Result Diagrams: 07/31/20 13:30 - FOLLOW UP Follow Up: [address] Chinchilla - TIME SPENT Time Spent in Discharge (Minutes): 30"
--- NOTE | 2020-08-02 09:10 | Labor Flowsheet ---
Labor Flowsheet Datetime Report Generated by CPN: 08/02/2020 09:10 Datetime: 07/31/2020 20:25 Communication Comments: Doppler heart tone in OR 174 bpm Datetime: 07/31/2020 20:19 Patient Care Comments: to OR accompanied by RNx2, MD, and CNM Datetime: 07/31/2020 20:15 VITAL SIGNS NBP Sys/Krystal/Mean (mmHg): 114 : 59 : 73 Pulse: 160 SpO2 (%): 100 UTERINE ACTIVITY Monitor Mode: External Frequency (min): 1-2 Quality: Strong Duration (sec): 60-80 Pattern: Normal: <= 5 Contractions in 10 Minutes Resting Tone (Palpate): Relaxed ASSESSMENT A Monitor Mode: Telemetry FHR Baseline Rate : 160 FHR Baseline Changes: Tachycardia Variability: Moderate 6-25 bpm Decelerations: Variable Category: Category II LaborFlag: OB Triage Datetime: 07/31/2020 20:11 PAIN Pain Assessment Comments: terbutaline .25 given Datetime: 07/31/2020 20:07 COMMUNICATION Communication: Provider at Bedside Datetime: 07/31/2020 19:56 PATIENT CARE IV/Blood Work: IV Bolus Started; IV Bolus Given ml @ 250 Datetime: 07/31/2020 19:30 Patient Position/Activity: Right Lateral Datetime: 07/31/2020 19:24 I/O Interventions: Traore Cath Inserted Datetime: 07/31/2020 19:00 Accelerations: None Datetime: 07/31/2020 18:55 VAGINAL EXAM Dilatation (cm): 5.0 Effacement (%): 90 Station: -1 Exam by: Dr. Giem Datetime: 07/31/2020 18:30 Contraction Comments: Provider on unit, made aware of rising baseline and decels. Datetime: 07/31/2020 18:16 Anesthesia Level Check: T10- Umbilicus Anesthesia Comments: Anesthesia level evaluated by SCOREBOARD OPERATOR Datetime: 07/31/2020 18:00 Comments: periods of minimal variability Datetime: 07/31/2020 17:22 Epidural Procedure: Test Dose Datetime: 07/31/2020 17:07 PROCEDURE TIME OUT Procedure Verify: Correct Patient Identity; Accurate Procedure Consent Form; Correct Patient Positi on ANESTHESIA Anesthesia Plans: Epidural Epidural Positioning: Sitting Datetime: 07/31/2020 17:00 Provider Notified (Name): Dr. Chinchilla Datetime: 07/31/2020 16:14 Membranes Rupture Method: Artificial Amniotic Fluid Color: Heavy Meconium Amniotic Fluid Amount: Small Membrane Comments: moderate mec
--- NOTE | 2020-08-22 14:27 | PROCEDURE REPORT ---
- HPI Diagnosis/Indication for NST: Other (POSSIBLE LABOR) Current EDU 08/04/20 Gestation 39 Weeks and 3 Days 1 Para 0 Vital Signs Temperature 36.6 C 07/31/20 08:45 Heart Rate 124 H 07/31/20 08:45 Respiratory Rate 20 07/31/20 08:45 Blood Pressure 113/63 07/31/20 08:45 O2 Saturation 98 07/31/20 08:45 Temperature 36.8 C 08/02/20 07:35 Heart Rate 91 08/02/20 07:35 Respiratory Rate 18 08/02/20 07:35 Blood Pressure 90/55 L 08/02/20 07:35 O2 Saturation 98 08/02/20 07:35 - NST Procedure NST Procedure Start Date 07/31/20 Start Time 08:28 Stop Time 09:05 Vibroacoustic Stimulation Used No Patient States Movement Yes - Results and Plan Findings/Impression: DOS 07/31/2020 REACTIVE NST Plan: pT APPEARS TO BE IN EARLY LABOR
== END 2020-08-02 08:43 | disposition home or self-care (01) | DRG 788 ==
LOC: WFO 08:14 → FBP 08:15 → WFO 09:21 → FBP 09:22
PROVIDERS: ADMIT Obstetrics & Gynecology; ATTEND Obstetrics & Gynecology
PROC: 10D00Z1 Extraction of Products of Conception, Low, Open Approach (ICD-10-PCS; 2020-07-31)
PROC: 10907ZC Drainage of Amniotic Fluid, Therapeutic from Products of Conception, Via Natural or Artificial Opening (ICD-10-PCS; principal; 2020-07-31 20:00)
DX: O77.0 Labor and delivery complicated by meconium in amniotic fluid (principal); O76 Abnormality in fetal heart rate and rhythm complicating labor and delivery; Z3A.39 39 weeks gestation of pregnancy; Z37.0 Single live birth
CPT/HCPCS: 59025; 82803; 85025; 86850; 86900; 86901; 99213; A9270; J0690; J2210; J2274; J7120

== ENCOUNTER 2020-08-21 22:00 | Emergency (ER) | payer OTHER ==
[2020-08-21 23:03] LABS: BASOPHILS % (AUTO) 0.4 %; EOSINOPHILS # (AUTO) 0.7 10^3/uL (0.0-0.7); EOSINOPHILS % (AUTO) 6.6 %; HCT - HEMATOCRIT 39.6 % (37.0-47.0); HGB - HEMOGLOBIN 11.7 g/dL (12.0-16.0); LYMPHOCYTES # (AUTO) 1.3 10^3/uL (1.5-3.5); LYMPHOCYTES % (AUTO) 12.9 %; MEAN CORPUSCULAR HEMOGLOBIN 22.8 pg (27.0-31.0); MEAN CORPUSCULAR HGB CONC 29.5 g/dL (32.0-36.0); MEAN PLATELET VOLUME 12.2 fL (7.9-10.8); MONOCYTES # (AUTO) 0.6 10^3/uL (0.0-1.0); MONOCYTES % (AUTO) 5.9 %; NEUTROPHILS # (AUTO) 7.4 10^3/uL (1.5-6.6); NEUTROPHILS % (AUTO) 73.8 %; PLT - PLATELET COUNT 253 10^3/uL (130-450); RED BLOOD COUNT 5.14 10^6/uL (4.20-5.40)
[2020-08-21 23:05] VITALS: BP 111/88
[2020-08-21] MEDS ORDERED: IBUPROFEN 600 MG TABLET PO STA (23:09)
--- NOTE | 2020-08-21 23:22 | ED Physician Documentation ---
History of Present Illness - Stated complaint Stated Complaint: BREAST PX - Chief complaint Chief Complaint: General - History obtained from History obtained from: Patient - Additonal information Additional information: 24-year-old woman currently breast-feeding her first child presents with 3 days of fever, body aches, and breast tenderness bilaterally, initially with redness and discomfort in the left breast, now worse in the right. T-max 102 yesterday. Afebrile today. Patient has been taking Tylenol at home with relief of symptoms. No pain at c section site. Voiding normally. still with some vaginal spotting, using 1-2 pads daily. intermittent lightheadedness with prolonged standing. Review of Systems Ten Systems: 10 systems reviewed and negative Constitutional: reports: Fever, Myalgias, Fatigue GI: reports: Nausea Skin: reports: Other (Erythema to bilateral breast) PD PAST MEDICAL HISTORY - Past Medical History Past Medical History: No Cardiovascular: None Respiratory: None Neuro: None Endocrine/Autoimmune: None GI: None TECHNOLOGIST DEVELOPMENT: None : None HEENT: None Psych: None Musculoskeletal: None Derm: None - Past Surgical History Past Surgical History: Yes /TECHNOLOGIST DEVELOPMENT: section HEENT: Tonsil/Adenoidectomy - Present Medications Home Medications: Ambulatory Orders Medication Instructions Recorded Confirmed cephALEXin [Keflex] 500 mg PO Q6H #28 08/21/20 - Allergies Allergies/Adverse Reactions: Allergies Allergy/AdvReac Type Severity Reaction Status Date / Time egg AdvReac Unknown Verified 08/21/20 22:14 - Social History Does the pt smoke?: No Smoking Status: Never smoker Does the pt drink ETOH?: No Does the pt have substance abuse?: No - Immunizations Immunizations are current?: Yes - POLST Patient has POLST: No PD ED PE NORMAL - Vitals Vital signs reviewed: Yes - General General: Alert and oriented X 3, No acute distress, Well developed/nourished - HEENT HEENT: Atraumatic, PERRL, EOMI - Neck Neck: Supple, no meningeal sign - Cardiac Cardiac: RRR, Other (BL breast nonerythematous. L superolateral and R superomedial breast with nodularity c/w clogged duct.) - Respiratory Respiratory: No respiratory distress, Clear bilaterally Results - Vitals Vitals: Vital Signs - 24 hr 08/21/20 08/21/20 08/21/20 22:02 22:35 23:04 Temperature 37.7 C Heart Rate 95 92 108 H Respiratory 16 16 16 Rate Blood Pressure 102/67 109/72 111/88 H O2 Saturation 99 100 100 08/21/20 23:08 Temperature 37.2 C Heart Rate Respiratory Rate Blood Pressure O2 Saturation Oxygen O2 Source Room air - Labs Labs: Laboratory Tests 08/21/20 22:57 WBC 10.0 RBC 5.14 Hgb 11.7 L Hct 39.6 MCV 77.0 L MCH 22.8 L MCHC 29.5 L RDW 18.0 H Plt Count 253 MPV 12.2 H Neut # (Auto) 7.4 H Lymph # (Auto) 1.3 L Schley # (Auto) 0.6 Eos # (Auto) 0.7 Baso # (Auto) 0.0 Absolute Nucleated RBC 0.00 Nucleated RBC % 0.0 PD MEDICAL DECISION MAKING - ED course ED course: 24-year-old woman presents with mastitis that appears to be resolving. I advised the patient to start taking antibiotics if she again has fever higher than 101. I educated her on hand expression and provided resources for food the reading. Breast exam was performed with turret lathe machinist RN Nellie. Return precautions given. She will follow up with her INDUSTRIAL TRAINING SPECIALIST. Departure - Departure Disposition: Home, Self Care Clinical Impression: Anemia, Mastitis Condition: Good Instructions: Anemia, ED Breast Infec Prescriptions: cephALEXin [Keflex] 500 mg PO Q6H #28 Comments: You were seen in the emergency department for breast infection that appears to be resolving. If you have a fever higher than 101 taken by mouth or by armpit then you should start taking the antibiotics as prescribed. Please note that we also checked a CBC, which is a blood test for anemia. You are mildly anemic, with a hemoglobin of 11.7, which is improved from July 31 when it was 10.8. You should follow-up with your INDUSTRIAL TRAINING SPECIALIST about this, as well as in regards to your breast infection. Return to the emergency department if you have any new or worsening symptoms or other concerns. Hand expression video: https://[email or web address].com/watch?[email or web address]&[email or web address]=[email or web address]&feature=emb_logo Check out "[place]" resources at [email or web address] Discharge Date/Time: 08/21/20 23:48
== END 2020-08-21 23:48 | disposition home or self-care (01) ==
LOC: ED 22:00
DX: O91.22 Nonpurulent mastitis associated with the puerperium (principal); O90.81 Anemia of the puerperium
CPT/HCPCS: 36415; 85025; 99283; 99284; A9270

== ENCOUNTER 2021-11-24 06:48 | Emergency (ER) | payer OTHER ==
[2021-11-24 06:58] VITALS: BP 123/70
[2021-11-24] MEDS ORDERED: HYDROcod/ACETAM 5/325 MG TABLET PO STA (07:05)
[2021-11-24] MEDS ORDERED: AMOX/CLAV 875 MG/125 MG TABLET PO STA (07:05)
--- NOTE | 2021-11-24 07:10 | ED Physician Documentation ---
PD HPI HEENT - Stated complaint Stated Complaint: MOUTH/JAW PX - Chief complaint Chief Complaint: Heent - History obtained from History obtained from: Patient - Additional information Additional information: She developed right-sided mouth pain 2 days ago with subsequently swelling on that side. May be some subjective fevers. She tried ibuprofen which was only modestly effective. Review of Systems Constitutional: reports: Fever, Chills Eyes: denies: Loss of vision, Decreased vision Ears: reports: Reviewed and negative Nose: reports: Reviewed and negative PD PAST MEDICAL HISTORY - Past Medical History Cardiovascular: None Respiratory: None Neuro: None Endocrine/Autoimmune: None GI: None ANALOG DESIGN ENGINEER: None : None HEENT: None Psych: None Musculoskeletal: None Derm: None - Past Surgical History Past Surgical History: Yes /ANALOG DESIGN ENGINEER: section HEENT: Tonsil/Adenoidectomy - Present Medications Home Medications: Ambulatory Orders Medication Instructions Recorded Confirmed cephALEXin [Keflex] 500 mg PO Q6H #28 08/21/20 Amox/Clav 875/125 [Augmentin] 1 each PO Q12H #20 tablet 11/24/21 HYDROcod/ACETAM 5/325 [[place] 5/325] 1 - 2 tab PO Q6H PRN #15 tablet 11/24/21 - Allergies Allergies/Adverse Reactions: Allergies Allergy/AdvReac Type Severity Reaction Status Date / Time egg AdvReac Unknown Verified 11/24/21 06:58 - Social History Does the pt smoke?: No Smoking Status: Never smoker Does the pt drink ETOH?: No Does the pt have substance abuse?: No - Immunizations Immunizations are current?: Yes - POLST Patient has POLST: No PD ED PE NORMAL - Vitals Vital signs reviewed: Yes - General General: Alert and oriented X 3, No acute distress - HEENT HEENT: Other (Mild swelling of the right side of the face, she does have some trismus at about 3 cm. I am able to elicit tenderness of the top of right maxillary molar in the back. No sublingual edema, no palpable abscess.) - Neck Neck: Supple, no meningeal sign, No bony TTP - Neuro Neuro: Alert and oriented X 3, Normal speech Results - Vitals Vitals: Vital Signs - 24 hr 11/24/21 06:55 Temperature 36.5 C Heart Rate 79 Respiratory 18 Rate Blood Pressure 123/70 O2 Saturation 99 Oxygen O2 Source Room air Departure - Departure Disposition: 01 Home, Self Care Clinical Impression: Dental infection Condition: Good Record reviewed to determine appropriate education?: Yes Instructions: ED Dental Abscess Facial Cellulitis Prescriptions: Amox/Clav 875/125 [Augmentin] 1 each PO Q12H #20 tablet HYDROcod/ACETAM 5/325 [[place] 5/325] 1 - 2 tab PO Q6H PRN #15 tablet PRN Reason: Pain Comments: I sent your prescription electronically to [facility] in [facility]. It is very important that you follow-up with a dentist. When it comes to dental problems like yours, the emergency department can only offer a short-term solution to your long-term problem. A couple of low cost options for dental care include: [facility] in [place], calls [phone] for an appointment Or [facility] in [place], call [phone] for an appointment. I am prescribing a short course of narcotic pain medication for you. These are potentially dangerous and addictive medications that should be used carefully. These medications may constipate you. Take an olsg-lvm-ksfykxn stool softener (docusate) twice daily with plenty of water while taking these medications. If you go 24 hours without a bowel movement, take tnnz-dtu-llrghnc miralax, per package instructions. Do not drink or drive while taking these medications. If you received narcotic or sedating medications while in the emergency department, do not drive for 24 hours. Store this medication in a safe, secure place and out of reach of children. It is a violation of federal law to give or sell this medication to another person or to use in a manner other than prescribed. The ED will not refill narcotic prescriptions, including prescriptions lost or stolen. To dispose of unwanted medications: 1. [facility] at [address] in [place] has a medication drop box. They accept prescription medications (in pill form) Tuesday through Tuesday 9:00 a.m. to 5:00 p.m. 2. [facility] accepts prescription medications (in pill form only) for disposal year round. Call for more information. 3. Contact the [facility] for the next [facility] sponsored prescription drug collection event. , [phone], or [phone]; Note that many narcotic pain relievers also contain Tylenol/acetaminophen. Please ensure that your total dose of acetaminophen from all sources does not exceed 3 g (3000 mg) per day.
== END 2021-11-24 07:20 | disposition home or self-care (01) ==
LOC: ED 06:48
DX: K04.7 Periapical abscess without sinus (principal)
CPT/HCPCS: 99282; A9270

== ENCOUNTER 2022-02-09 10:59 | Emergency (ER) | payer OTHER ==
[2022-02-09 11:31] LABS: BILIRUBIN,URINE NEGATIVE (NEGATIVE); GLUCOSE, URINE (UA) NEGATIVE (NEGATIVE); KETONES,URINE (UA) NEGATIVE (NEGATIVE); LEUKOCYTE ESTERASE, URINE NEGATIVE (NEGATIVE); NITRITE,URINE NEGATIVE (NEGATIVE); OCCULT BLOOD,URINE LARGE (NEGATIVE); PROTEIN,URINE TRACE mg/dL (NEGATIVE); UROBILINOGEN,URINE 0.2 (NORMAL) E.U./dL (NORMAL)
[2022-02-09 11:31] LABS: BASOPHILS % (AUTO) 0.4 %; EOSINOPHILS # (AUTO) 0.1 10^3/uL (0.0-0.7); EOSINOPHILS % (AUTO) 0.8 %; HCT - HEMATOCRIT 44.9 % (37.0-47.0); HGB - HEMOGLOBIN 14.4 g/dL (12.0-16.0); LYMPHOCYTES # (AUTO) 2.5 10^3/uL (1.5-3.5); LYMPHOCYTES % (AUTO) 31.8 %; MEAN CORPUSCULAR HGB CONC 32.1 g/dL (32.0-36.0); MEAN CORPUSCULAR VOLUME 87.2 fL (81.0-99.0); MEAN PLATELET VOLUME 11.9 fL (7.9-10.8); MONOCYTES # (AUTO) 0.7 10^3/uL (0.0-1.0); MONOCYTES % (AUTO) 8.1 %; NEUTROPHILS # (AUTO) 4.7 10^3/uL (1.5-6.6); NEUTROPHILS % (AUTO) 58.4 %; PLT - PLATELET COUNT 253 10^3/uL (130-450); RED BLOOD COUNT 5.15 10^6/uL (4.20-5.40); RED CELL DISTRIBUTION WIDTH 12.7 % (12.0-15.0)
[2022-02-09 11:33] LABS: CLARITY,URINE CLEAR (CLEAR); HCG UR QUAL NEGATIVE
[2022-02-09 11:41] LABS: BACTERIA,URINE Few /HPF (None Seen); RBC,URINE TNTC /HPF (0-5); SQUAMOUS EPITHELIAL CELL,UR MOD Squamous (<= Few); WBC,URINE 0-3 /HPF (0-5)
[2022-02-09 11:43] LABS: ALBUMIN 4.3 g/dL (3.2-5.5); ALBUMIN/GLOBULIN RATIO 1.3 (1.0-2.2); BILIRUBIN,TOTAL 0.9 mg/dL (0.2-1.0); CALCIUM 9.5 mg/dL (8.5-10.3); CREATININE 0.7 mg/dL (0.4-1.0); POTASSIUM 3.8 mmol/L (3.5-5.0); TOTAL PROTEIN 7.5 g/dL (6.7-8.2)
--- NOTE | 2022-02-09 12:56 | Ultrasound Report ---
PROCEDURE: Pelvic w/Doppler Complete INDICATIONS: pelvic pain, vag bleed TECHNIQUE: Real-time scanning was performed of the pelvic organs, with image documentation. Patient refused landa svaginal portion of the exam. COMPARISON: None. FINDINGS: No pathologic free abdominal or pelvic fluid. Uterus: Anteverted uterus is normal in size at 6.7 x 3.3 x 4.4 cm. Myometrium is homogeneous in echo texture. No discrete uterine fibroids. The endometrium measures 4.1 mm in combined thickness. No yoselyn ss endometrial mass or fluid. Ovaries: Right ovary measures 3.1 x 2.3 x 2.7 cm in size with a volume of 10.1 cc. Left ovary measur es 2.5 x 2.0 x 1.8 cm in size with a volume of 4.7 cc. No solid-appearing ovarian lesion. Less than 1 2 follicles are seen in each ovary. Normal appearing arterial and venous waveforms are confirmed to e ach ovary.] Other: No free pelvic fluid. IMPRESSION: Normal ultrasound examination of pelvis. No endometrial mass or fluid. No discrete uteri ne fibroids. No evidence of ovarian torsion. Reviewed by: Jerry Pond MD on 02/09/2022 12:54 PM PST Approved by: Jerry Pond MD on 02/09/2022 12:54 PM PST Station ID: [id number]
--- NOTE | 2022-02-09 13:55 | ED Physician Documentation ---
PD HPI FEMALE - Stated complaint Stated Complaint: FEMALE - Chief complaint Chief Complaint: Abd Pain - History obtained from History obtained from: Patient - History of Present Illness Timing - onset: How many days ago (2) Timing - duration: Days (1) Pain level max: 0 Pain level max: 0 Associated symptoms: No: Fever, Back pain, Pelvic pain Contributing factors: control, Oral contraceptive. No: Recently seen: Not recently seen - Additional information Additional information: 26-year-old female states that she started oral contraceptive pills about 8 to 9 months ago. She states that she takes them continuously. She states that about 2 days ago she started to have irregular vaginal bleeding. She has also had pelvic cramping. She called her PCP who referred her here for evaluation. No chest pain. No shortness of breath. No lightheadedness. Nothing makes it better or worse. She states currently the bleeding has nearly resolved Review of Systems Constitutional: denies: Fever, Chills Throat: denies: Sore throat Respiratory: denies: Cough GI: denies: Vomiting, Diarrhea, Hematemesis, Bloody / black stool : denies: Dysuria, Frequency, Hesitancy, Now EGA Skin: denies: Rash Musculoskeletal: denies: Neck pain, Back pain PD PAST MEDICAL HISTORY - Past Medical History Cardiovascular: None Respiratory: None Neuro: None Endocrine/Autoimmune: None GI: None TEACHER OF THE DEAF/HARD OF HEARING: None : None HEENT: None Psych: None Musculoskeletal: None Derm: None - Past Surgical History Past Surgical History: Yes /TEACHER OF THE DEAF/HARD OF HEARING: section HEENT: Tonsil/Adenoidectomy - Present Medications Home Medications: Ambulatory Orders Medication Instructions Recorded Confirmed cephALEXin [Keflex] 500 mg PO Q6H #28 08/21/20 Amox/Clav 875/125 [Augmentin] 1 each PO Q12H #20 tablet 11/24/21 HYDROcod/ACETAM 5/325 [[place] 5/325] 1 - 2 tab PO Q6H PRN #15 tablet 11/24/21 - Allergies Allergies/Adverse Reactions: Allergies Allergy/AdvReac Type Severity Reaction Status Date / Time No Known Drug Allergies Allergy Verified 02/09/22 11:09 - Social History Does the pt smoke?: No Smoking Status: Never smoker Does the pt drink ETOH?: No Does the pt have substance abuse?: No - Immunizations Immunizations are current?: Yes - POLST Patient has POLST: No PD ED PE NORMAL - Vitals Vital signs reviewed: Yes - General General: Alert and oriented X 3, No acute distress, Well developed/nourished - HEENT HEENT: PERRL, Moist mucous membranes - Neck Neck: Supple, no meningeal sign - Cardiac Cardiac: RRR, Strong equal pulses - Respiratory Respiratory: No respiratory distress, Clear bilaterally - Abdomen Abdomen: Soft, Non tender, Non distended - Back Back: No CVA TTP - Derm Derm: Warm and dry, No rash - Extremities Extremities: No edema - Neuro Neuro: Alert and oriented X 3 - Psych Psych: Normal mood, Normal affect Results - Vitals Vitals: Vital Signs - 24 hr 02/09/22 11:05 Temperature 37.1 C Heart Rate 90 Respiratory 16 Rate Blood Pressure 120/73 O2 Saturation 100 Oxygen O2 Source Room air - Labs Labs: Laboratory Tests 02/09/22 02/09/22 02/09/22 11:16 11:27 11:27 WBC 8.0 RBC 5.15 Hgb 14.4 Hct 44.9 MCV 87.2 MCH 28.0 MCHC 32.1 RDW 12.7 Plt Count 253 MPV 11.9 H Neut # (Auto) 4.7 Lymph # (Auto) 2.5 [place] # (Auto) 0.7 Eos # (Auto) 0.1 Baso # (Auto) 0.0 Absolute Nucleated RBC 0.00 Nucleated RBC % 0.0 Sodium 138 Potassium 3.8 Chloride 102 Carbon Dioxide 26 Anion Gap 10.0 BUN 16 Creatinine 0.7 Estimated GFR (MDRD) 103 Glucose 97 Calcium 9.5 Total Bilirubin 0.9 AST 23 ALT 23 Alkaline Phosphatase 47 Total Protein 7.5 Albumin 4.3 Globulin 3.2 Albumin/Globulin Ratio 1.3 Lipase 37 Urine Color YELLOW Urine Clarity CLEAR Urine pH 6.0 Ur Specific [place] >=1.030 H Urine Protein TRACE Urine Glucose (UA) NEGATIVE Urine Ketones NEGATIVE Urine Occult Blood LARGE H Urine Nitrite NEGATIVE Urine Bilirubin NEGATIVE Urine Urobilinogen 0.2 (NORMAL) Ur Leukocyte Esterase NEGATIVE Urine RBC TNTC H Urine WBC 0-3 Ur Squamous Epith Cells MOD Squamous H Urine Bacteria Few Ur Microscopic Review INDICATED Urine Culture Comments NOT INDICATED Urine HCG, Qual NEGATIVE - Rads (name of study) pelvic US Radiology: Final report received, EMP read contemporaneously, See rad report PD MEDICAL DECISION MAKING - ED course Complexity details: reviewed results, re-evaluated patient, considered differential, d/w patient ED course: 26-year-old female presents to the emergency department with irregular vaginal bleeding. Likely related to her oral contraceptives. She does not want to try any different medications today. Patient states that the bleeding has almost fully resolved at this time. She will follow-up with her PCP for further care. No significant laboratory findings. No abnormalities on ultrasound. Patient counseled regarding signs and symptoms for which I believe and urgent re- evaluation would be necessary. Patient with good understanding of and agreement to plan and is comfortable going home at this time This document was made in part using voice recognition software. While efforts are made to proofread this document, sound alike and grammatical errors may occur. Normal ultrasound examination of pelvis. No endometrial mass or fluid. No discrete uterine fibroids. No evidence of ovarian torsion. Departure - Departure Disposition: 01 Home, Self Care Clinical Impression: Dysfunctional uterine bleeding Condition: Good Instructions: ED Bleed Irregular Vaginal Follow-Up: your,doctor in 1 week [Other] Comments: Your laboratory testing and ultrasound did not show any acute abnormalities. This appears to be what we call dysfunctional uterine bleeding. This could be due to your control pills. Please follow-up with your doctor for further care. Return if you worsen.
[2022-02-09 14:06] VITALS: BP 120/75
== END 2022-02-09 14:03 | disposition home or self-care (01) ==
LOC: ED 10:59
DX: N93.8 Other specified abnormal uterine and vaginal bleeding (principal); Z79.3 Long term (current) use of hormonal contraceptives
CPT/HCPCS: 36415; 80053; 81001; 81003; 81025; 83690; 85025; 87086; 93975; 99282; 99284